=== PATIENT | male | born 1985 | race African-American/Black ===

== ENCOUNTER 2017-06-18 13:32 | Emergency (ER) | payer SELFPAY ==
[~2017-06-18] VITALS: Ht 180.3 cm; Wt 75.7 kg
[2017-06-18 13:32] VITALS: BP 111/71
[2017-06-18] MEDS ORDERED: ACETAMINOPHEN ES 500 MG TABLET ONE (14:16)
[2017-06-18] MEDS ORDERED: ACETAMINOPHEN 325 MG TABLET PO ONE (14:30)
--- NOTE | 2017-06-18 15:25 | NUR ---
vonda bandage applied. Patient discharged to home in stable condition. Written and verbal after care instructions given. Patient verbalizes understanding of instruction.Crutches dispensed. Pt instructed on proper use of crutches. Patient able to demonstrate correct use of crutches.
== END 2017-06-18 15:29 | disposition home or self-care (01) ==
LOC: ER 13:34
DX: S93.402A Sprain of unspecified ligament of left ankle, initial encounter (principal); F17.200 Nicotine dependence, unspecified, uncomplicated; F31.9 Bipolar disorder, unspecified; Z98.890 Other specified postprocedural states; Z88.5 Allergy status to narcotic agent; Z88.6 Allergy status to analgesic agent; Z88.8 Allergy status to other drugs, medicaments and biological substances; Y04.0XXA Assault by unarmed brawl or fight, initial encounter; Y93.89 Activity, other specified; Y92.89 Other specified places as the place of occurrence of the external cause; Y99.8 Other external cause status
CPT/HCPCS: 73590-TC; 73610-TC; A4606; Z7610

== ENCOUNTER 2017-11-15 15:05 | Emergency (ER) | payer MEDICAID ==
[~2017-11-15] VITALS: Ht 180.3 cm; Wt 78.5 kg
--- NOTE | 2017-11-15 15:10 | NUR ---
BBRA 89 FROM [facility] FOR HOMELESS C/O DIFFUSE ABD PAIN X1 DAY, RECENT HOSP X2 WEEKS AGO SAME PROBLEM. NAD NOTED, VSS, RESP EVEN AND UNLABORED, PT WAS PUT ON MONITOR, WAITING FOR MD MOROCHO.
[2017-11-15] MEDS ORDERED: MORPHINE SULFATE INJ 2 MG/ML DISP.SYRIN IV ONE ×2 (15:30→16:30)
[2017-11-15] MEDS ORDERED: PANTOPRAZOLE 40 MG VIAL IV ONE (15:30)
[2017-11-15] MEDS ORDERED: IV NS 0.9% 500 ML BAG IV ONE (15:30)
[2017-11-15] MEDS ORDERED: ONDANSETRON HCL/PF 4 MG/2 ML VIAL IVP ONE (15:30)
[2017-11-15] MEDS ORDERED: PANTOPRAZOLE 40 MG VIAL ONE (15:34)
[2017-11-15] MEDS ORDERED: ONDANSETRON HCL/PF 4 MG/2 ML VIAL ONE (15:34)
[2017-11-15] MEDS ORDERED: MORPHINE SULFATE INJ 4 MG/ML DISP.SYRIN ONE ×2 (15:35→16:21)
[2017-11-15 15:37] LABS: BASOPHILS % (AUTO) 0.4 % (0.0-2.0); EOSINOPHILS % (AUTO) 1.3 % (0.0-6.0); HEMATOCRIT 44 % (39-51); HEMOGLOBIN 14.9 g/dL (13.5-17.5); LYMPHOCYTES # (AUTO) 1.5 /CMM (0.8-4.8); LYMPHOCYTES % (AUTO) 26.5 % (20.0-44.0); MEAN CORPUSCULAR HGB CONC 34 g/dl (31.0-36.0); MEAN CORPUSCULAR VOLUME 78 fL (80-96); MONOCYTES # (AUTO) 0.5 /CMM (0.1-1.30); MONOCYTES % (AUTO) 8.6 % (2.0-12.0); NEUTROPHILS # (AUTO) 3.4 /CMM (1.8-8.9); NEUTROPHILS % (AUTO) 63.2 % (43.0-81.0); PLATELET COUNT (AUTO) 355 /CMM (150-450); RDW COEFFICIENT OF VARIATION 18.9 (11.5-15.0); RED BLOOD CELL COUNT(AUTO) 5.62 MIL/uL (4.5-6.0); WHITE BLOOD COUNT (AUTO) 5.5 K/uL (4.3-11.0)
[2017-11-15 15:45] LABS: CALCIUM, SERUM 10.1 mg/dL (8.5-10.1); CARBON DIOXIDE 24 mmol/L (21-32); CHLORIDE 102 mmol/L (98-107); GLUCOSE 80 mg/dL (74-106); POTASSIUM 3.9 mmol/L (3.5-5.1); SODIUM SERUM 136 mmol/L (136-145); UREA NITROGEN, BLOOD 20 mg/dL (7-18)
[2017-11-15 15:48] LABS: INR 0.97 (0.85-1.15)
[2017-11-15 15:50] LABS: ALANINE AMINOTRANSFERASE 577 U/L (12-78); ALBUMIN 4.1 g/dL (3.4-5.0); ALKALINE PHOSPHATASE 262 U/L (46-116); ASPARTATE AMINOTRANSFERASE 1233 U/L (15-37); BILIRUBIN,DIRECT 3.2 mg/dL (0.0-0.2); BILIRUBIN,TOTAL 4.2 mg/dL (0.2-1.0); LIPASE 129 U/L (73-393); TOTAL PROTEIN, SERUM 9.9 g/dL (6.4-8.2)
--- NOTE | 2017-11-15 15:52 | NUR ---
PT UNABLE TO GIVE URINE SAMPLE, WILL TRY AGAIN AFTER IV FLUIDS
[2017-11-15 15:53] LABS: TROPONIN I < 0.017 ng/mL (0.00-0.056)
[2017-11-15 17:09] VITALS: BP 116/74
--- NOTE | 2017-11-15 17:37 | NUR ---
IV removed. Catheter intact and site benign. Pressure and 4x4 applied to site. No bleeding noted.
--- NOTE | 2017-11-15 17:38 | NUR ---
Patient discharged to home in stable condition. Written and verbal after care instructions given. Patient verbalizes understanding of instruction.
== END 2017-11-15 17:38 | disposition home or self-care (01) ==
LOC: ER 15:11
DX: K75.9 Inflammatory liver disease, unspecified (principal); F17.200 Nicotine dependence, unspecified, uncomplicated; F31.9 Bipolar disorder, unspecified; Z59.0 Homelessness; Z88.5 Allergy status to narcotic agent; Z88.6 Allergy status to analgesic agent
CPT/HCPCS: 36415; 76705; 80048; 80076; 83690; 84484; 85025; 85730; 93005; 96374; 96375; 96376; 99285; 99406; A4606; C9113; J2270 ×2; J2405; J7040; Z7610

== ENCOUNTER 2021-07-08 10:09 | Emergency (ER) | payer MEDICAID, OTHER ==
[~2021-07-08] VITALS: Ht 180.3 cm; Wt 74.0 kg
--- NOTE | 2021-07-08 10:22 | NUR ---
BIBRA FOR C/O FEELING ANXIOUS AND GENERALIZED BODY ITCHING. THE PATIENT IS ALERT AND ORIENTED X3. DENIES PAIN. IN ROOM AIR AND DENIES SOB. RESPIRATION REGULAR AND UNLABORED. DENIES SI/HI. WILL CONTINUE TO MONITOR THE PATIENT.
[2021-07-08] MEDS ORDERED: LORAZEPAM 1 MG TABLET ONE (10:47)
[2021-07-08] MEDS: LORAZEPAM 1 MG TABLET PO ONE (10:50)
[2021-07-08 11:03] VITALS: BP 121/75
--- NOTE | 2021-07-08 11:03 | NUR ---
Patient discharged to home in stable condition. Written and verbal after care instructions given. Patient verbalizes understanding of instruction.
== END 2021-07-08 11:04 | disposition home or self-care (01) ==
LOC: ER 10:12
DX: F15.10 Other stimulant abuse, uncomplicated (principal); F20.9 Schizophrenia, unspecified; Z88.6 Allergy status to analgesic agent; Z88.5 Allergy status to narcotic agent

== ENCOUNTER 2021-07-08 13:53 | Emergency (ER) | payer OTHER ==
[~2021-07-08] VITALS: Ht 175.3 cm; Wt 70.8 kg
--- NOTE | 2021-07-08 14:27 | NUR ---
COVID SWAB COLLECTED AND SENT TO LAB. PT REFUSED VITALS.
[2021-07-08 14:46] VITALS: BP 126/65
--- NOTE | 2021-07-08 15:14 | NUR ---
Patient discharged to [facility] unit#[id number] in stable condition. Written and verbal after care instructions given. Patient verbalizes understanding of instruction.
== END 2021-07-08 15:36 ==
LOC: ER 13:55
DX: Z20.822 Contact with and (suspected) exposure to COVID-19 (principal); F15.10 Other stimulant abuse, uncomplicated; F19.10 Other psychoactive substance abuse, uncomplicated; F31.9 Bipolar disorder, unspecified; F20.0 Paranoid schizophrenia; Z88.6 Allergy status to analgesic agent; Z91.041 Radiographic dye allergy status
CPT/HCPCS: 87426; 99283; C9803

== ENCOUNTER 2023-11-27 12:09 | Emergency (ER) | payer SELFPAY ==
[~2023-11-27] VITALS: Ht 170.2 cm; Wt 63.0 kg
[2023-11-27 12:12] VITALS: BP 124/64; TEMP 98.4
[2023-11-27 13:47] VITALS: O2SAT 97
== END 2023-11-27 12:15 | disposition home or self-care (01) ==
LOC: ER 12:11
DX: F15.10 Other stimulant abuse, uncomplicated (principal); F20.9 Schizophrenia, unspecified; F17.200 Nicotine dependence, unspecified, uncomplicated; Z88.5 Allergy status to narcotic agent; Z88.1 Allergy status to other antibiotic agents